=== PATIENT | female | born 1975 | race Caucasian/White ===

== ENCOUNTER → 2016-12-25 | Outpatient (CLI) | payer OTHER ==
[2016-09-14 13:48] VITALS: BP 137/75
[~2016-12-25] MED LIST: BUPR150T15 PO; CEPH-263 PO; DULO30CA2 PO; DULO60CA6 PO; ERGO500012 PO; ESCI20TA10 PO; GABA-586 PO; HYOS0.1264 PO; IBUP-1027 PO; METF10002 PO; METF500T4 PO; NAPR220T70 PO; PANT40TA5 PO; SERT50TA PO; TIZA4TAB PO
--- NOTE | 2016-12-25 10:22 | RAD ---
EXAM: Abdomen sonogram. HISTORY: Right lower quadrant pain. Suspected hernia. TECHNIQUE: Sonographic imaging of the abdomen and right lower quadrant was performed. COMPARISON: None. FINDINGS: No ventral abdominal wall mass, fluid collection or hernia is seen. IMPRESSION: Unremarkable ventral abdominal wall and right lower quadrant sonogram.
== END | disposition home or self-care (01) ==
LOC: US 13:21
PROVIDERS: ATTEND Physician Assistant
DX: R10.31 Right lower quadrant pain (principal)
CPT/HCPCS: 93975

== ENCOUNTER 2017-02-21 01:54 | Emergency (ER) | payer OTHER ==
[~2017-02-21] VITALS: Ht 177.8 cm; Wt 136.1 kg
[~2017-02-21 01:54] MED LIST changes: +METF-620 PO; -METF10002 PO
[2017-02-21 02:34] LABS: BASO # 0.1 x10^3/uL (0.0-0.2); BASO % 1 % (0-3); EOS % 3 % (0-3); HEMATOCRIT 41.4 % (36.0-47.0); HEMOGLOBIN 13.6 g/dL (12.0-15.5); LYMPH # 3.4 x10^3/uL (1.0-4.8); LYMPH % 30 % (24-48); MEAN CORPUSCULAR HEMOGLOBIN 29 pg (25-35); MEAN CORPUSCULAR HGB CONC 33 g/dL (31-37); MEAN CORPUSCULAR VOLUME 89 fL (79-100); MONO % 5 % (0-9); NEUT % 62 % (31-73); PLATELET COUNT 212 x10^3/uL (140-400); RED BLOOD COUNT 4.66 x10^6/uL (3.50-5.40); RED CELL DISTRIBUTION WIDTH 12.9 % (11.5-14.5); WHITE BLOOD COUNT 11.4 x10^3/uL (4.0-11.0)
[2017-02-21] MEDS ORDERED: CONTRAST GIVEN MC PRN (02:45)
[2017-02-21] MEDS ORDERED: fentaNYL PF VIAL 100 MCG/2 ML VIAL IV ONE ×2 (02:45→03:45)
[2017-02-21] MEDS ORDERED: IOHEXOL 300 MG/ML 75 ML VIAL IV ONE (02:45)
[2017-02-21 03:35] VITALS: BP 144/60
[2017-02-21 03:37] LABS: ALBUMIN 3.8 g/dL (3.4-5.0); ALBUMIN/GLOBULIN RATIO 1.1 (1.0-1.7); CREATININE 0.9 mg/dL (0.6-1.0); GFR 69.7; POTASSIUM 3.8 mmol/L (3.5-5.1); TOTAL BILIRUBIN 0.2 mg/dL (0.2-1.0); TOTAL PROTEIN 7.2 g/dL (6.4-8.2)
--- NOTE | 2017-02-21 03:53 | RAD ---
CT abdomen and pelvis with contrast HISTORY: Abdominal pain COMPARISON: CT abdomen and pelvis May 03, 2016 TECHNIQUE: Helical CT imaging abdomen and pelvis with 75 mL Isovue 370 intravenous contrast PQRS statement: CT scans at this facility use dose reduction including either automated exposure control, iterative reconstructions, and /or weight based radiation dosing via mA and kV modification when appropriate to reduce radiation dose to as low as reasonably achievable. Abdomen findings: Calcified granuloma left lung base. Cholecystectomy. Hypodensity of the liver likely fatty. Spleen, kidneys, adrenals and pancreas are unremarkable. No abdominal fluid or adenopathy. Anterior abdominal wall hernia repair with mesh. The GI tract including the appendix demonstrates no obstruction or inflammation. L5-S1 disc osteophyte with neural foraminal stenoses. Lung bases are unremarkable. Pelvis findings: Bladder, uterus, ovaries, rectum and bones are unremarkable. No pelvic fluid or adenopathy. IMPRESSION: No acute process. The appendix is negative. Electronically signed by: Oleg Scanlon MD (02/21/2017 3:50 AM)
[2017-02-21] MEDS ORDERED: HYDR-971 PO (04:30)
--- NOTE | 2017-02-21 04:30 | PHYS DOC ---
Past Medical History Past Medical History: Arthritis, Asthma, COPD, Depression, Diabetes-Type II, GERD, Sinusitis, Other Additional Past Medical Histor: CHRONIC BACK PAIN Past Surgical History: Cholecystectomy, , Tubal ligation, Other Additional Past Surgical Histo: r)leg&ankle x2, uterine ablation, D&C, hernia repair, r)carpal tunnel Alcohol Use: Rarely Drug Use: None Adult General Chief Complaint Chief Complaint: ABDOMINAL PAIN HPI HPI 41-year-old female is having significant lower abdominal tenderness with some radiation down her right thigh the past 8-9 hours. She denies any nausea or vomiting. She denies any fever or chills. She states she's had a cholecystectomy. She denies any dysuria or hematuria. She denies any vaginal bleeding. She denies any traumatic injury to explain her pain. She took 2 Lortab tablets prior to arrival for her symptoms without relief. Review of Systems Review of Systems Constitutional: Denies fever or chills [] Eyes: Denies change in visual acuity, redness, or eye pain [] HENT: Denies nasal congestion or sore throat [] Respiratory: Denies cough or shortness of breath [] Cardiovascular: No additional information not addressed in HPI [] GI: Has abdominal pain, denies nausea, denies vomiting, bloody stools or diarrhea [] : Denies dysuria or hematuria [] Musculoskeletal: Denies back pain or joint pain [] Integument: Denies rash or skin lesions [] Neurologic: Denies headache, focal weakness or sensory changes [] Endocrine: Denies polyuria or polydipsia [] Current Medications Current Medications Current Medications Medications (Trade) Dose Ordered Sig/Camila Start Time Stop Time Status Last Admin Dose Admin Fentanyl Citrate (Fentanyl 2ml Vial) 50 mcg 1X ONCE 02/21/17 03:45 02/21/17 03:46 DC 02/21/17 03:52 50 MCG Info (Do NOT chart on this entry -- for MONITORING) 1 each PRN DAILY PRN 02/21/17 02:45 02/23/17 02:44 Iohexol (Omnipaque 300 Mg/ml) 75 ml 1X ONCE 02/21/17 02:45 02/21/17 02:46 DC 02/21/17 03:29 75 ML Allergies Allergies Allergies Coded Allergies Type Severity Reaction Last Updated Verified meperidine Allergy Intermediate Rash 09/02/15 Yes Physical Exam Physical Exam Constitutional: Well developed, well nourished, no acute distress, non-toxic appearance. [] HENT: Normocephalic, atraumatic, bilateral external ears normal, oropharynx moist, no oral exudates, nose normal. [] Eyes: PERRLA, EOMI, conjunctiva normal, no discharge. [] Neck: Normal range of motion, no tenderness, supple, no stridor. [] Cardiovascular:Heart rate regular rhythm, no murmur [] Lungs & Thorax: Bilateral breath sounds clear to auscultation [] Abdomen: Bowel sounds normal, soft, has lower abdominal tenderness, no masses, no pulsatile masses. [] Skin: Warm, dry, no erythema, no rash. [] Back: No tenderness, no CVA tenderness. [] Extremities: No tenderness, no cyanosis, no clubbing, ROM intact, no edema. [] Neurologic: Alert and oriented X 3, normal motor function, normal sensory function, no focal deficits noted. [] Psychologic: Affect normal, judgement normal, mood normal. [] Current Patient Data Vital Signs Vital Signs Date Time Temp Pulse Resp B/P (MAP) Pulse Ox O2 Delivery O2 Flow Rate FiO2 02/21/17 03:35 78 18 144/60 (88) 97 Room Air 02/21/17 02:04 98.2 98.2 Lab Values Laboratory Tests Test 02/21/17 02:20 White Blood Count 11.4 x10^3/uL (4.0-11.0) H Red Blood Count 4.66 x10^6/uL (3.50-5.40) Hemoglobin 13.6 g/dL (12.0-15.5) Hematocrit 41.4 % (36.0-47.0) Mean Corpuscular Volume 89 fL (79-100) Mean Corpuscular Hemoglobin 29 pg (25-35) Mean Corpuscular Hemoglobin Concent 33 g/dL (31-37) Red Cell Distribution Width 12.9 % (11.5-14.5) Platelet Count 212 x10^3/uL (140-400) Neutrophils (%) (Auto) 62 % (31-73) Lymphocytes (%) (Auto) 30 % (24-48) Monocytes (%) (Auto) 5 % (0-9) Eosinophils (%) (Auto) 3 % (0-3) Basophils (%) (Auto) 1 % (0-3) Neutrophils # (Auto) 7.0 x10^3uL (1.8-7.7) Lymphocytes # (Auto) 3.4 x10^3/uL (1.0-4.8) Monocytes # (Auto) 0.6 x10^3/uL (0.0-1.1) Eosinophils # (Auto) 0.3 x10^3/uL (0.0-0.7) Basophils # (Auto) 0.1 x10^3/uL (0.0-0.2) Sodium Level 142 mmol/L (136-145) Potassium Level 3.8 mmol/L (3.5-5.1) Chloride Level 102 mmol/L (98-107) Carbon Dioxide Level 26 mmol/L (21-32) Anion Gap 14 (6-14) Blood Urea Nitrogen 11 mg/dL (7-20) Creatinine 0.9 mg/dL (0.6-1.0) Estimated GFR (Cockcroft-Gault) 69.7 BUN/Creatinine Ratio 12 (6-20) Glucose Level 165 mg/dL (70-99) H Calcium Level 9.0 mg/dL (8.5-10.1) Total Bilirubin 0.2 mg/dL (0.2-1.0) Aspartate Amino Transferase (AST) 22 U/L (15-37) Alanine Aminotransferase (ALT) 41 U/L (14-59) Alkaline Phosphatase 51 U/L (46-116) Total Protein 7.2 g/dL (6.4-8.2) Albumin 3.8 g/dL (3.4-5.0) Albumin/Globulin Ratio 1.1 (1.0-1.7) Lipase 130 U/L (73-393) Laboratory Tests 02/21/17 02:20 Laboratory Tests 02/21/17 02:20 EKG EKG [] Radiology/Procedures Radiology/Procedures CT abdomen and pelvis with contrast HISTORY: Abdominal pain COMPARISON: CT abdomen and pelvis May 03, 2016 TECHNIQUE: Helical CT imaging abdomen and pelvis with 75 mL Isovue 370 intravenous contrast PQRS statement: CT scans at this facility use dose reduction including either automated exposure control, iterative reconstructions, and /or weight based radiation dosing via mA and kV modification when appropriate to reduce radiation dose to as low as reasonably achievable. Abdomen findings: Calcified granuloma left lung base. Cholecystectomy. Hypodensity of the liver likely fatty. Spleen, kidneys, adrenals and pancreas are unremarkable. No abdominal fluid or adenopathy. Anterior abdominal wall hernia repair with mesh. The GI tract including the appendix demonstrates no obstruction or inflammation. L5-S1 disc osteophyte with neural foraminal stenoses. Lung bases are unremarkable. Pelvis findings: Bladder, uterus, ovaries, rectum and bones are unremarkable. No pelvic fluid or adenopathy. IMPRESSION: No acute process. The appendix is negative. Electronically signed by: [place] Scanlon MD (02/21/2017 3:50 AM) DICTATED and SIGNED BY: [place] SCANLON MD DATE: 02/21/17341 Course & Med Decision Making Course & Med Decision Making Pertinent Labs and Imaging studies reviewed. (See chart for details) This 41-year-old female who's having significant lower abdominal tenderness had a CT of her abdomen and pelvis which was negative for any acute abnormality. Her laboratory workup was unremarkable. Her pain is improved with IV pain control. I counseled her that her symptoms could be musculoskeletal in etiology as well as hernia related. She was given a prescription for [place] and general surgery follow-up and instructed to avoid any strenuous activities. Return precautions were provided and acknowledged by the patient. Dragon Disclaimer Dragon Disclaimer This electronic medical record was generated, in whole or in part, using a voice recognition dictation system. Departure Departure Impression: Primary Impression: Abdominal pain Disposition: 01 HOME, SELF-CARE Admitting Physician: Other Condition: STABLE Referrals: MARIE PERDUE MD (PCP) ELAYNE MARTINEZ MD Patient Instructions: Abdominal Pain (Nonspecific) Additional Instructions: Please take your pain medication as instructed and follow up with the surgeon as instructed as well. Return to the ER if you develop any worsening of your symptoms despite take your pain medications or if you develop any new symptoms. Scripts Hydrocodone/Apap 5-325 (NORCO 5-325 TABLET) 1 Each Tablet 1 TAB PO PRN Q6HRS Y for PAIN, #12 TAB 0 Refills Prov: SHRADDHA TRIVEDI DO 02/21/17 SHRADDHA TRIVEDI DO February 21, 2017 04:30
[2017-02-21 04:49] LABS: BILIRUBIN,URINE NEGATIVE (NEG); GLUCOSE,URINE NEGATIVE (NEG); NITRITE,URINE NEGATIVE (NEG); PH,URINE 5.5; PROTEIN,URINE NEGATIVE (NEG-TRACE); UROBILINOGEN,URINE 0.2 mg/dL (0.2 mg/dL)
[2017-02-21 05:13] LABS: BACTERIA,URINE FEW /HPF (0-FEW); RBC,URINE OCC /HPF (0-2); SQUAMOUS EPITHELIAL CELL,UR FEW /LPF; WBC,URINE OCC /HPF (0-4)
== END 2017-02-21 04:51 | disposition home or self-care (01) ==
LOC: ER 01:54
DX: R10.30 Lower abdominal pain, unspecified (principal); M19.90 Unspecified osteoarthritis, unspecified site; J44.9 Chronic obstructive pulmonary disease, unspecified; F32.9 Major depressive disorder, single episode, unspecified; E11.9 Type 2 diabetes mellitus without complications; K21.9 Gastro-esophageal reflux disease without esophagitis; G89.29 Other chronic pain; Z90.49 Acquired absence of other specified parts of digestive tract; Z98.890 Other specified postprocedural states; Z98.51 Tubal ligation status; Z88.8 Allergy status to other drugs, medicaments and biological substances
CPT/HCPCS: 36415; 74177; 80053; 81001; 83690; 85027; 96374; 96376; 99285; J3010; Q9967

== ENCOUNTER → 2018-02-20 | Outpatient (CLI) | payer OTHER ==
[2018-02-20 14:14] LABS: ISTAT CREATININE 0.7 mg/dL (0.6-1.1)
== END | disposition home or self-care (01) ==
LOC: KCIC CT 12:44
DX: K43.9 Ventral hernia without obstruction or gangrene (principal); J98.11 Atelectasis; E11.8 Type 2 diabetes mellitus with unspecified complications
CPT/HCPCS: 74177; 82565

== ENCOUNTER → 2018-02-21 | Outpatient (CLI) | payer OTHER | END | disposition home or self-care (01) | LOC: US 15:44 | DX: N85.8 Other specified noninflammatory disorders of uterus (principal) | CPT/HCPCS: 76830; 76856 ==